=== PATIENT | female | born 1995 | race Caucasian/White ===

== ENCOUNTER 2021-01-11 | Emergency (ER) | payer MEDICAID, OTHER ==
--- NOTE | 2021-01-11 13:36 | ED ---
General Adult HPI - General Chief complaint: Recheck/Abnormal Lab/Rx Stated complaint: [facility]- needle stick Time Seen by Provider: 01/11/21 13:20 Source: patient, RN notes reviewed Mode of arrival: ambulatory Limitations: no limitations - History of Present Illness Initial comments: 25-year-old female presents emergency Department with chief complaint of needing redraw for needlestick. She hadn't used sick injury that happened in [place] 6 weeks ago today. Patient states that she has had no symptoms she never tested positive she was just advised that she needed her redraw. - Related Data Allergies Allergy/AdvReac Type Severity Reaction Status Date / Time No Known Allergies Allergy Verified 01/11/21 13:19 Review of Systems ROS Statement: Those systems with pertinent positive or pertinent negative responses have been documented in the HPI. ROS Other: All systems not noted in ROS Statement are negative. Past Medical History Past Medical History: No Reported History History of Any Multi-Drug Resistant Organisms: None Reported Past Surgical History: Orthopedic Surgery Past Psychological History: No Psychological Hx Reported Smoking Status: Never smoker Past Alcohol Use History: Occasional Past Drug Use History: None Reported General Exam Limitations: no limitations General appearance: alert, in no apparent distress Head exam: Present: atraumatic, normocephalic, normal inspection Eye exam: Present: normal appearance, PERRL, EOMI. Absent: scleral icterus, conjunctival injection, periorbital swelling ENT exam: Present: normal exam, normal oropharynx, mucous membranes moist Neck exam: Present: normal inspection, full ROM. Absent: tenderness, meningismus, lymphadenopathy Respiratory exam: Present: normal lung sounds bilaterally. Absent: respiratory distress, wheezes, rales, rhonchi, stridor Cardiovascular Exam: Present: regular rate, normal rhythm, normal heart sounds. Absent: systolic murmur, diastolic murmur, rubs, gallop, clicks Course Vital Signs 01/11/21 13:13 Temperature 97.9 F Pulse Rate 66 Respiratory 18 Rate Blood Pressure 114/74 O2 Sat by Pulse 98 Oximetry Medical Decision Making - Medical Decision Making HIV and hepatitis redraw was done in emergency department patient was discharged in stable condition. Disposition Clinical Impression: Needle stick injury Disposition: HOME SELF-CARE Condition: Stable Instructions (If sedation given, give patient instructions): Needle Stick Injuries (ED) Additional Instructions: Please return to the Emergency Department if symptoms worsen or any other concerns. Is patient prescribed a controlled substance at d/c from ED?: No Referrals: None,Stated [Primary Care Provider] - 1-2 days Time of Disposition: 13:36
== END 2021-01-11 14:04 | disposition home or self-care (01) ==
CPT/HCPCS: 99282

== ENCOUNTER → 2021-03-02 | Outpatient (CLI) | payer OTHER ==
[2021-03-02 21:50] LABS: HIV 2 AB Non-Reactive (Non-Reactive); HIV AB P24 Non-Reactive (Non-Reactive); HIV P24 AG Non-Reactive (Non-Reactive)
== END | disposition home or self-care (01) ==
LOC: LABWHC1 12:46
PROVIDERS: ATTEND Emergency Medicine
DX: Z77.21 Contact with and (suspected) exposure to potentially hazardous body fluids (principal)
CPT/HCPCS: 36415; 87390

== ENCOUNTER → 2021-06-04 | Outpatient (CLI) | payer OTHER | END | disposition home or self-care (01) | LOC: LABWHC1 12:37 | PROVIDERS: ATTEND Emergency Medicine | DX: T14.8XXA Other injury of unspecified body region, initial encounter (principal); W46.1XXA Contact with contaminated hypodermic needle, initial encounter | CPT/HCPCS: 36415; 87522 ==

== ENCOUNTER → 2021-08-08 | Outpatient (CLI) | payer MEDICAID, OTHER | END | disposition home or self-care (01) | LOC: LABWHC1 08:44 | PROVIDERS: ATTEND Emergency Medicine | DX: Z20.822 Contact with and (suspected) exposure to COVID-19 (principal) | CPT/HCPCS: 87635 ==

== ENCOUNTER → 2022-08-13 | Outpatient (CLI) | payer MEDICAID ==
--- NOTE | 2022-08-13 14:07 | US ---
EXAMINATION TYPE: US pelvis complete transvag DATE OF EXAM: 08/13/2022 COMPARISON: NONE CLINICAL HISTORY: R19.04 LLQ SOFT TISSUE MASS. TECHNIQUE: . Transabdominal sonographic images of the pelvis were acquired. Transvaginal sonographi c images were medically necessary to better assess the following anatomy: Date of LMP: 08/08/2022 EXAM MEASUREMENTS: Uterus: 6.8 x 3.4 x 3.9 cm Endometrial Stripe: 0.35 cm Right Ovary: 3.6 x 1.7 x 1.7 cm Left Ovary: 3.6 x 1.2 x 2.0 cm 1. Uterus: Anteverted wnl 2. Endometrium: wnl 3. Right Ovary: wnl 4. Left Ovary: wnl 5. Bilateral Adnexa: wnl 6. Posterior cul-de-sac: wnl 7. In area of palpable abnormality, left lower quadrant, no abnormalities visualized. IMPRESSION: Unremarkable pelvic ultrasound. No solid or cystic mass identified within the left lower quadrant in the patient's region of palpable abnormality.
== END | disposition home or self-care (01) ==
LOC: RADUSWWP 12:39
PROVIDERS: ATTEND Family Medicine
DX: R19.04 Left lower quadrant abdominal swelling, mass and lump (principal)
CPT/HCPCS: 76830; 76856

== ENCOUNTER → 2022-10-26 | Outpatient (CLI) | payer MEDICAID ==
[2022-10-26 22:32] LABS: Basophils # (A) 0.04 X 10*3/uL (0.00-0.10); Basophils % (A) 0.4 %; Eosinophils # (A) 0.07 X 10*3/uL (0.04-0.35); Eosinophils % (A) 0.6 %; HCT 40.3 % (37.2-46.3); HGB 13.4 g/dL (12.0-15.0); Immature Grans, Automated 0.3 %; Lymphocytes # (A) 1.84 X 10*3/uL (0.90-5.00); MCH 30.2 pg (27.0-32.0); MCHC 33.3 g/dL (32.0-37.0); Mean Platelet Volume 9.8 fL (9.5-12.2); Monocytes # (A) 0.55 X 10*3/uL (0.20-1.00); Monocytes % (A) 5.1 %; NRBC Per 100 WBC 0 /100 WBCS (0.0-0.0); Neutrophils # (A) 8.31 X 10*3/uL (1.80-7.70); Neutrophils % (A) 76.6 %; Platelet Count 350 X 10*3/uL (140-440); RBC 4.43 X 10*6/uL (4.10-5.20); RDW 12.7 % (11.5-14.5); WBC 10.84 X 10*3/uL (4.50-10.00)
== END | disposition home or self-care (01) ==
LOC: LABPAT 14:35
PROVIDERS: ATTEND Obstetrics & Gynecology
DX: Z01.812 Encounter for preprocedural laboratory examination (principal); O02.1 Missed abortion; Z3A.00 Weeks of gestation of pregnancy not specified
CPT/HCPCS: 36415; 85025

== ENCOUNTER 2022-10-27 06:23 | Day surgery (SDC) | payer MEDICAID ==
[~2022-10-27 06:23] MED LIST: Pre Op ABX Message 1 EACH MISC MISCELLANE ONE
[2022-10-27] MEDS ORDERED: ONDANSETRON 4 MG/2 ML VIAL IVP ONE (06:42)
[2022-10-27] MEDS ORDERED: LACTATED RINGERS 1,000 ML IV SCH (06:42)
[2022-10-27] MEDS ORDERED: MIDAZOLAM 2 MG/2 ML VIAL IV PRN (06:42)
[2022-10-27] MEDS ORDERED: DEXAMETHASONE SOD PHOSPHATE 4 MG/ML 1 ML VIAL IV ONE (06:42)
[2022-10-27] MEDS ORDERED: SCOPOLAMINE 1 MG/72 HR PATCH TRANSDERM ONE (06:42)
[2022-10-27] MEDS ORDERED: HYDROmorphone 0.5 MG/0.5 ML SYRINGE IVP PRN (07:00)
[2022-10-27] MEDS ORDERED: fentaNYL (PF) 50 MCG/ML 2 ML AMP ONE (07:27)
[2022-10-27] MEDS ORDERED: LIDOCAINE 2% INJ 20 MG/ML (2 ML VIAL) ONE (07:27)
[2022-10-27] MEDS ORDERED: ePHEDrine 50 MG/ML 1 ML VIAL ONE (07:27)
[2022-10-27] MEDS ORDERED: PROPOFOL 10 MG/ML 20 ML VIAL IV ONE (07:27)
[2022-10-27] MEDS ORDERED: KETOROLAC 15 MG/ML 1 ML VIAL ONE (07:27)
--- NOTE | 2022-10-27 08:06 | P.PCN ---
Date of Procedure: 10/27/22 Preoperative Diagnosis: Missed 8 weeks Postoperative Diagnosis: same Anesthesia: GETA Surgeon: Cristina Foley Estimated Blood Loss (ml): 200 IV fluids (ml): 400 Urine output (ml): 300 Pathology: other (Intrauterine uterine contents, products of conception) Condition: stable Disposition: PACU Description of Procedure: Patient is brought to the operating suite where a general anesthetic is administered without difficulty. She's placed in the dorsal lithotomy position. The appropriate timeout is performed to assure proper patient and procedural identification. Blood type is A-. Examination under anesthesia reveals a retroverted uterus of approximately 8-10 weeks size, negative adnexa bilaterally. Bladder is drained for approximately 300 mL of clear yellow urine. Weighted speculum was placed into the vagina. Anterior lip of the cervix is grasped with a double-tooth tenaculum. Uterus sounds to a depth of 9 cm in the retroverted position. Cervix is gently and systematically dilated using Hanks dilators with little resistance. A #8 curved curet is placed to the dome of the fundus and under appropriate suction pressures the uterus is evacuated for a large amount of tissue. A medium sharp curette is used in all 4 quadrants to assure that the cavity is emptied thoroughly. Suction curette once again placed and no additional tissue is procured. Instrumentation is removed. Cervix is clean and dry. All sponge needle and instrument counts are correct patient is brought back to the recovery room in very good condition with stable vital signs including blood pressure 100/52, pulse 60, 100% O2 saturation. RhoGAM is given in the recovery room for Rh- status. Toradol is given as well. Written instructions are provided. Patient will follow-up with me in the office in 2 weeks.
[2022-10-27] MEDS ORDERED: Rhogam IMMUNE GLOBULIN 1,500 UNIT/1 ML IM ONE (08:23)
[2022-10-27 08:34] VITALS: TEMP 97.8
[2022-10-27 09:47] VITALS: BP 113/74; PULSE 74; RESP 18
== END 2022-10-27 10:40 ==
LOC: OR 06:23
PROVIDERS: ATTEND Obstetrics & Gynecology
DX: O02.1 Missed abortion (principal); Z98.890 Other specified postprocedural states; Z79.899 Other long term (current) drug therapy
CPT/HCPCS: 86900; 86901; 88305; 86850; 59820; J2790; J1100; J2405; J3010; J1885; J2704; J2001

== ENCOUNTER → 2023-01-21 | Outpatient (CLI) | payer MEDICAID ==
[2023-01-21 15:49] LABS: HGB 13.8 d/dL (12.0-15.0); MCH 29.9 pg (27.0-32.0); MCHC 32.9 d/dL (32.0-37.0); MCV 91.1 FL (80.0-97.0); Mean Platelet Volume 9.9 FL (9.5-12.2); NRBC Per 100 WBC 0 X 10*3/uL (0.00-0.01); Platelet Count 310 X 10*3/uL (140-440); RBC 4.61 X 10*6/uL (4.10-5.20); RDW 12.1 % (11.5-14.5); WBC 5.34 X 10*3/uL (4.50-10.00)
[2023-01-21 21:30] LABS: T4, Free (Free Thyroxine) 1.22 ng/dL (0.80-1.80)
[2023-01-21 23:17] LABS: Prolactin 19.9 ng/mL (2.800-29.200)
== END | disposition home or self-care (01) ==
LOC: LABWHC1 10:42
PROVIDERS: ATTEND Obstetrics & Gynecology Obstetrics
DX: N96 Recurrent pregnancy loss (principal)
CPT/HCPCS: 36415; 83036; 84146; 84439; 84443; 84481; 85027

== ENCOUNTER → 2023-03-17 | Outpatient (CLI) | payer MEDICAID ==
[2023-03-18 09:27] LABS: Prothrombin 20210A Mutation Negative
== END | disposition home or self-care (01) ==
LOC: LABWHC1 14:54
PROVIDERS: ATTEND Obstetrics & Gynecology Obstetrics
DX: N96 Recurrent pregnancy loss (principal)
CPT/HCPCS: 36415; 81240; 81291

== ENCOUNTER → 2023-03-28 | Outpatient (CLI) | payer MEDICAID | END | disposition home or self-care (01) | LOC: LABWHC1 14:32 | PROVIDERS: ATTEND Obstetrics & Gynecology Obstetrics | DX: N96 Recurrent pregnancy loss (principal) | CPT/HCPCS: 36415; 81241 ==

== ENCOUNTER 2023-09-23 09:15 | Emergency (ER) | payer MEDICAID ==
[2023-09-23 09:55] LABS: Basophils % (A) 0 %; Eosinophils # (A) 0.1 k/uL (0-0.7); Eosinophils % (A) 1 %; HCT 40.5 % (34.0-46.0); HGB 13.6 gm/dL (11.4-16.0); Lymphocytes # (A) 1.5 k/uL (1.0-4.8); Lymphocytes % (A) 14 %; MCH 30.5 pg (25.0-35.0); MCHC 33.7 g/dL (31.0-37.0); MCV 90.6 fL (80.0-100.0); Mean Platelet Volume 7.5; Monocytes # (A) 0.4 k/uL (0-1.0); Monocytes % (A) 4 %; Neutrophils # (A) 8.2 k/uL (1.3-7.7); Neutrophils % (A) 80 %; Platelet Count 297 k/uL (150-450); RBC 4.47 m/uL (3.80-5.40); RDW 12.2 % (11.5-15.5); WBC 10.3 k/uL (3.8-10.6)
[2023-09-23 09:56] VITALS: RESP 18
[2023-09-23 10:04] LABS: ALT 19 U/L (4-34); AST 26 U/L (14-36); African American GFR (CKD) >90 (>60 ml/min/1.73 sqM); Albumin 4.7 g/dL (3.5-5.0); Alkaline Phosphatase 37 U/L (38-126); Anion Gap 10 mmol/L; Blood Urea Nitrogen 14 mg/dL (7-17); Calcium 9.8 mg/dL (8.4-10.2); Carbon Dioxide 20 mmol/L (22-30); Chloride 105 mmol/L (98-107); Glucose 95 mg/dL (74-99); Non-African American GFR(CKD) >90 (>60 ml/min/1.73 sqM); Potassium 4.2 mmol/L (3.5-5.1); Sodium 135 mmol/L (137-145); Total Bilirubin 0.8 mg/dL (0.2-1.3); Total Protein 7.5 g/dL (6.3-8.2)
--- NOTE | 2023-09-23 10:06 | ED ---
Female Urogenital HPI - General Chief complaint: Vaginal Bleeding Stated complaint: Bleeding,Cramping -7wks Time Seen by Provider: 09/23/23 09:29 Source: patient, RN notes reviewed Mode of arrival: ambulatory Limitations: no limitations - History of Present Illness Initial comments: This is a 27 year old female who presents to the emergency department for vaginal bleeding in . Patient is 7-8 weeks and . States that the bleeding started this morning. She has very minor abdominal cramping. Currently follows with Dr. Berrios, BIRD TENDER, however she has not yet seen her in this . She has an appointment coming up in 4 days with an ultrasound scheduled then as well. She is a negative blood type and has received RhoGAM with each . MD Complaint: vaginal bleeding - Related Data Home Medications Medication Instructions Recorded Confirmed Vit No.179/Iron/Folic 1 each PO DAILY 10/26/22 10/26/22 [ Tablet] Allergies Allergy/AdvReac Type Severity Reaction Status Date / Time No Known Allergies Allergy Verified 09/23/23 09:28 Review of Systems ROS Statement: Those systems with pertinent positive or pertinent negative responses have been documented in the HPI. ROS Other: All systems not noted in ROS Statement are negative. Past Medical History Past Medical History: No Reported History Additional Past Medical History / Comment(s): miscarriage History of Any Multi-Drug Resistant Organisms: None Reported Past Surgical History: Orthopedic Surgery Additional Past Surgical History / Comment(s): left hip labrum repair Past Anesthesia/Blood Transfusion Reactions: No Reported Reaction Past Psychological History: No Psychological Hx Reported Smoking Status: Never smoker Past Alcohol Use History: None Reported Past Drug Use History: None Reported General Exam Limitations: no limitations General appearance: alert, in no apparent distress Head exam: Present: atraumatic, normocephalic, normal inspection Respiratory exam: Present: normal lung sounds bilaterally. Absent: respiratory distress, wheezes, rales, rhonchi, stridor Cardiovascular Exam: Present: regular rate, normal rhythm, normal heart sounds. Absent: systolic murmur, diastolic murmur, rubs, gallop, clicks Neurological exam: Present: alert, oriented X3, CN II-XII intact Psychiatric exam: Present: normal affect, normal mood Skin exam: Present: warm, dry, intact, normal color. Absent: rash Course Vital Signs 09/23/23 09/23/23 09:25 12:00 Temperature 98.7 F 98.1 F Pulse Rate 106 H 88 Respiratory 18 18 Rate Blood Pressure 133/88 122/68 O2 Sat by Pulse 98 99 Oximetry Medical Decision Making - Medical Decision Making This is a 27 year old female who presents to the emergency department for vaginal bleeding in . Was pt. sent in by a medical professional or institution? @ -No Did you speak to anyone other than the patient for history? @ -No Did you review nursing and triage notes? @ -Yes, and I agree, it is accurate with regards to the patient's symptoms. Were old charts reviewed? @ -No Differential Diagnosis? @ -Differential Vaginal Bleeding: Spontaneous , threatened , molar , ectopic , incompetent cervix, placenta previa, uterine rupture, dysfunctional uterine bleeding, hemorrhage, uterine fibroids, malignancy, coagulopathy, PID, cervicitis, adenomyosis, vaginal trauma, this is not meant to be an all- inclusive list. EKG interpreted by me (3pts min.)? @ -Not obtained X-rays interpreted by me (1pt min.)? @ -Not obtained CT interpreted by me (1pt min.)? @ -Not obtained U/S interpreted by me (1pt. min.)? @ -OB US obtained. My interpretation identifies a single live IUP. What testing was considered but not performed? (CT, X-rays, U/S, labs)? Why? @ -None What meds were considered but not given? Why? @ -None Did you discuss the management of the patient with other professionals? @ -No Did you reconcile home meds? @ -No Was smoking cessation discussed for >3mins.? @ -No Was critical care preformed (if so, how long)? @ -No Were there social determinants of health that impacted care today? How? (Homelessness, low income, unemployed, alcoholism, drug addiction, transportation, low edu. Level, literacy, decrease access to med. care, halfway, rehab)? @ -No Was there de-escalation of care discussed even if they declined? (Discuss DNR or withdrawal of care, Hospice)? @ -No What co-morbidities impacted this encounter? (DM, HTN, Smoking, COPD, CAD, Cancer, CVA, Hep., AIDS, mental health diagnosis, sleep apnea, morbid obesity)? @ -, Factor V Was patient admitted / discharged? @ -Discharged. Lab work obtained and found to be unremarkable. Urinalysis negative for signs of infection. OB Ultrasound obtained and identified a single live intrauterine with a heart rate of 123 beats per minute. A small subchorionic hemorrhage was identified. Findings reviewed with the patient. She is A- and RhoGAM was administered. She called Dr. Berrios's office and has an appointment scheduled in 4 days for follow up with a repeat US. Patient otherwise discharged home in stable condition. Undiagnosed new problem with uncertain prognosis? @ -None Drug Therapy requiring intensive monitoring for toxicity (Heparin, Nitro, Insulin, Cardizem)? @ -None Were any procedures done? @ -None Diagnosis/symptom? @ -Threatened miscarriage Acute, or Chronic, or Acute on Chronic? @ -Acute Uncomplicated (without systemic symptoms) or Complicated (systemic symptoms)? @ -Uncomplicated Side effects of treatment? @ -None Exacerbation, Progression, or Severe Exacerbation] @ -Not applicable Poses a threat to life or bodily function? @ -No Return precautions reviewed in depth, the patient is instructed to return to the emergency department with any new, worsening, or concerning symptoms. Patient verbalized understanding. This case was discussed in detail with the attending ED physician, Dr. Jerry. Presentation, findings, and treatment plan discussed in detail as well. - Lab Data Result diagrams: 09/23/23 09:44 09/23/23 09:44 Lab Results 09/23/23 09/23/23 09/23/23 Range/Units 09:44 09:44 09:44 WBC 10.3 (3.8-10.6) k/uL RBC 4.47 (3.80-5.40) m/uL Hgb 13.6 (11.4-16.0) gm/dL Hct 40.5 (34.0-46.0) % MCV 90.6 (80.0-100.0) fL MCH 30.5 (25.0-35.0) pg MCHC 33.7 (31.0-37.0) g/dL RDW 12.2 (11.5-15.5) % Plt Count 297 (150-450) k/uL MPV 7.5 Neutrophils % 80 % Lymphocytes % 14 % Monocytes % 4 % Eosinophils % 1 % Basophils % 0 % Neutrophils # 8.2 H (1.3-7.7) k/uL Lymphocytes # 1.5 (1.0-4.8) k/uL Monocytes # 0.4 (0-1.0) k/uL Eosinophils # 0.1 (0-0.7) k/uL Basophils # 0.0 (0-0.2) k/uL Sodium 135 L (137-145) mmol/L Potassium 4.2 (3.5-5.1) mmol/L Chloride 105 (98-107) mmol/L Carbon Dioxide 20 L (22-30) mmol/L Anion Gap 10 mmol/L BUN 14 (7-17) mg/dL Creatinine 0.64 (0.52-1.04) mg/dL Est GFR (CKD-EPI)AfAm >90 (>60 ml/min/1.73 sqM) Est GFR (CKD-EPI)NonAf >90 (>60 ml/min/1.73 sqM) Glucose 95 (74-99) mg/dL Calcium 9.8 (8.4-10.2) mg/dL Total Bilirubin 0.8 (0.2-1.3) mg/dL AST 26 (14-36) U/L ALT 19 (4-34) U/L Alkaline Phosphatase 37 L (38-126) U/L Total Protein 7.5 (6.3-8.2) g/dL Albumin 4.7 (3.5-5.0) g/dL HCG, Quant 59413.7 mIU/mL Urine Color Colorless Urine Appearance Clear (Clear) Urine pH 5.0 (5.0-8.0) Ur Specific [place] 1.003 (1.001-1.035) Urine Protein Negative (Negative) Urine Glucose (UA) Negative (Negative) Urine Ketones Negative (Negative) Urine Blood Trace H (Negative) Urine Nitrite Negative (Negative) Urine Bilirubin Negative (Negative) Urine Urobilinogen <2.0 (<2.0) mg/dL Ur Leukocyte Esterase Negative (Negative) Urine RBC <1 (0-5) /hpf Urine WBC 1 (0-5) /hpf Ur Squamous Epith Cells 2 (0-4) /hpf Blood Type Blood Type Recheck Bld Type Recheck Status Antibody Screen 09/23/23 Range/Units 09:44 WBC (3.8-10.6) k/uL RBC (3.80-5.40) m/uL Hgb (11.4-16.0) gm/dL Hct (34.0-46.0) % MCV (80.0-100.0) fL MCH (25.0-35.0) pg MCHC (31.0-37.0) g/dL RDW (11.5-15.5) % Plt Count (150-450) k/uL MPV Neutrophils % % Lymphocytes % % Monocytes % % Eosinophils % % Basophils % % Neutrophils # (1.3-7.7) k/uL Lymphocytes # (1.0-4.8) k/uL Monocytes # (0-1.0) k/uL Eosinophils # (0-0.7) k/uL Basophils # (0-0.2) k/uL Sodium (137-145) mmol/L Potassium (3.5-5.1) mmol/L Chloride (98-107) mmol/L Carbon Dioxide (22-30) mmol/L Anion Gap mmol/L BUN (7-17) mg/dL Creatinine (0.52-1.04) mg/dL Est GFR (CKD-EPI)AfAm (>60 ml/min/1.73 sqM) Est GFR (CKD-EPI)NonAf (>60 ml/min/1.73 sqM) Glucose (74-99) mg/dL Calcium (8.4-10.2) mg/dL Total Bilirubin (0.2-1.3) mg/dL AST (14-36) U/L ALT (4-34) U/L Alkaline Phosphatase (38-126) U/L Total Protein (6.3-8.2) g/dL Albumin (3.5-5.0) g/dL HCG, Quant mIU/mL Urine Color Urine Appearance (Clear) Urine pH (5.0-8.0) Ur Specific [place] (1.001-1.035) Urine Protein (Negative) Urine Glucose (UA) (Negative) Urine Ketones (Negative) Urine Blood (Negative) Urine Nitrite (Negative) Urine Bilirubin (Negative) Urine Urobilinogen (<2.0) mg/dL Ur Leukocyte Esterase (Negative) Urine RBC (0-5) /hpf Urine WBC (0-5) /hpf Ur Squamous Epith Cells (0-4) /hpf Blood Type A Negative Blood Type Recheck A Neg Bld Type Recheck Status No Antibody Screen NEGATIVE - Radiology Data Radiology results: report reviewed, image reviewed Disposition Clinical Impression: Threatened Disposition: HOME SELF-CARE Instructions (If sedation given, give patient instructions): Subchorionic Hemorrhage (ED) Additional Instructions: Return to the emergency department with any new, worsening, or concerning symptoms. Follow up with your BIRD TENDER as scheduled on Tuesday. Is patient prescribed a controlled substance at d/c from ED?: No Referrals: Albina Cole MD [Primary Care Provider] - 1-2 days Time of Disposition: 11:42
--- NOTE | 2023-09-23 11:00 | US ---
EXAMINATION TYPE: Ultrasound OB <= 14 week fetus DATE OF EXAM: 09/23/2023 10:16 AM COMPARISON: NONE CLINICAL INDICATION: Female, 27 years old with history of Vaginal bleeding in ; Bleeding luz marina t started today. EXAM PERFORMED: Transabdominal (TA) EXAM MEASUREMENTS: GESTATIONAL AGE / DATING Physician Established: Not yet established Dates by LMP: (6 weeks/6 days) EDC: 05/12/2024 Dates by First Scan: No previous this is first scan Dates by Current Scan for: ( 6 weeks/5 days) EDC: 05/13/2024 MATERNAL ANATOMY Uterus: 8.4 x 6.7 x 5.2 cm Right Ovary: 4.2 x 1.8 x 2.0 cm Left Ovary: 2.2 x 1.4 x 0.9 cm Post CDS / Adnexa: no free fluid Presence of free fluid: no Presence of corpus luteal cyst: right ovary complex lesion with peripheral vascularity = 2.0 x 1.8 x 2.0 cm Presence of subchorionic bleed: lower uterine segment= 1.4 x 1.3 x 0.4 cm GESTATION / SURVEY CRL: 0.8 cm (6 weeks/5 days) MSD: seen, not measured Yolk Sac (normal less than 6mm): 3.2 mm Heart Rate: 123 bpm Rhythm: Normal IUP: Viable IUP Date of LMP: 08/06/2023, [id number] Beta HcG (if available): Not available at this time IMPRESSION: 1. Single live intrauterine with estimated gestational age of 6 weeks 6 days by LMP. Curren t ultrasound biometry is concordant at 6 weeks 5 days. 2. Small inferior perigestational bleed measuring 1.4 cm. 3. A 2.0 cm corpus luteum of the right ovary. 4. Short interval follow-up as clinically indicated. Also, complete survey recommended at 18-20 weeks.
[2023-09-23 11:03] LABS: HCG,Quantitative Serum 56947.7 mIU/mL
[2023-09-23 11:18] LABS: Appearance,Urine Clear (Clear); Bilirubin,Urine Negative (Negative); Blood,Urine Trace (Negative); Color,Urine Colorless; Glucose,Urine (UA) Negative (Negative); Ketones,Urine Negative (Negative); Leukocyte Esterase,Urine Negative (Negative); Nitrite,Urine Negative (Negative); Protein,Urine Negative (Negative); RBC,Urine <1 /hpf (0-5); Specific Gravity,Urine 1.003 (1.001-1.035); Squamous Epithelial Cell,Urine 2 /hpf (0-4); Urobilinogen,Urine <2.0 mg/dL (<2.0); WBC,Urine 1 /hpf (0-5)
[2023-09-23] MEDS: Rhogam IMMUNE GLOBULIN 1,500 UNIT/1 ML IM ONE (11:46)
[2023-09-23 12:37] VITALS: BP 122/68; PULSE 88; TEMP 98.1
== END 2023-09-23 12:00 | disposition home or self-care (01) ==
LOC: EC 09:15
DX: O20.0 Threatened abortion (principal); Z3A.01 Less than 8 weeks gestation of pregnancy
CPT/HCPCS: 99284 ×2; 96372 ×2; 36415; 86900; 86901; 80053; 85025; 86850; 81001; 84702; 76801; J2790

== ENCOUNTER → 2023-10-20 | Outpatient (CLI) | payer MEDICAID ==
[2023-10-20 16:13] LABS: Hepatitis B Surface Antigen Nonreactive (Nonreactive); Hepatitis C IgG Antibody Nonreactive (Nonreactive)
[2023-10-20 16:30] LABS: HCT 39.8 % (37.2-46.3); HGB 13.2 g/dL (12.0-15.0); MCH 30.1 pg (27.0-32.0); MCHC 33.2 g/dL (32.0-37.0); MCV 90.9 FL (80.0-97.0); Mean Platelet Volume 10.3 FL (9.5-12.2); NRBC Per 100 WBC 0 X 10*3/uL (0.00-0.01); Platelet Count 317 X 10*3/uL (140-440); RBC 4.38 X 10*6/uL (4.10-5.20); RDW 12.7 % (11.5-14.5); WBC 8.77 X 10*3/uL (4.50-10.00)
[2023-10-21 14:43] LABS: HIV 2 AB Non-Reactive (Non-Reactive); HIV AB P24 Non-Reactive (Non-Reactive); HIV P24 AG Non-Reactive (Non-Reactive)
== END | disposition home or self-care (01) ==
LOC: LABWHC1 10:12
PROVIDERS: ATTEND Obstetrics & Gynecology Obstetrics
DX: Z34.81 Encounter for supervision of other normal pregnancy, first trimester (principal)
CPT/HCPCS: 36415; 85027; 86762; 86780; 86803; 86850; 86870; 86880; 86900; 86901; 87086; 87340; 87390

== ENCOUNTER → 2024-02-14 | Outpatient (CLI) | payer MEDICAID | END | disposition home or self-care (01) | LOC: LABWHC1 14:25 | PROVIDERS: ATTEND Obstetrics & Gynecology Obstetrics | DX: Z36.9 Encounter for antenatal screening, unspecified (principal) | CPT/HCPCS: 36415; 82950; 85027; 86850; 86900; 86901 ==

== ENCOUNTER 2024-05-05 06:00 | Inpatient (IN) | payer MEDICAID ==
[2024-05-05] MEDS ORDERED: TERBUTALINE 1 MG/ML VIAL SQ PRN (06:10)
[2024-05-05] MEDS ORDERED: METHYLERGONOVINE 0.2 MG/ML 1 ML AMP IM PRN (06:10)
[2024-05-05] MEDS ORDERED: miSOPROStoL 200 MCG TAB RECTAL PRN (06:10)
[2024-05-05] MEDS ORDERED: miSOPROStoL 200 MCG TAB PO PRN (06:10)
[2024-05-05] MEDS ORDERED: TRANEXAMIC 1,000 MG/100ML-NACL 1,000 MG in EMPTY BAG 1 BAG IV PRN (06:10)
[2024-05-05] MEDS ORDERED: LIDOCAINE 0.5% (PF) 5 MG/ML (50 ML SDV) SQ PRN (06:10)
[2024-05-05] MEDS ORDERED: OXYTOCIN 10 UNIT/ML 1 ML VIAL IM PRN (06:10)
[2024-05-05] MEDS ORDERED: CARBOPROST TROMETHAMINE 250 MCG/ML 1 ML AMP IM PRN (06:10)
[2024-05-05 06:13] LABS: Glucose,Whole Blood 100 mg/dL (70-110)
[2024-05-05 06:21] VITALS: RESP 16
[2024-05-05] MEDS: LACTATED RINGERS 1,000 ML IV SCH (06:23)
[2024-05-05] MEDS: OXYTOCIN 30 UNITS/500 ML NS 30 UNIT in SALINE 1 500ML.BAG IV SCH (06:24)
[2024-05-05 06:45] LABS: Basophils % (A) 0 %; Eosinophils # (A) 0.1 k/uL (0-0.7); Eosinophils % (A) 1 %; HCT 42.2 % (34.0-46.0); HGB 14.6 gm/dL (11.4-16.0); Lymphocytes # (A) 1.6 k/uL (1.0-4.8); Lymphocytes % (A) 20 %; MCH 31.5 pg (25.0-35.0); MCHC 34.6 g/dL (31.0-37.0); MCV 90.9 fL (80.0-100.0); Mean Platelet Volume 8.2; Monocytes # (A) 0.4 k/uL (0-1.0); Monocytes % (A) 5 %; Neutrophils # (A) 5.6 k/uL (1.3-7.7); Neutrophils % (A) 72 %; Platelet Count 290 k/uL (150-450); RBC 4.65 m/uL (3.80-5.40); RDW 12.8 % (11.5-15.5); WBC 7.8 k/uL (3.8-10.6)
--- NOTE | 2024-05-05 11:22 | P.HPOB ---
History of Present Illness H&P Date: 05/05/24 Chief Complaint: IUP at 39-0/7 weeks This is a 28-year-old 3 para 0-0-2-0 at 39-0/7 weeks that presents to labor and delivery for scheduled induction of labor. Patient has a history of MTHFR and factor V deficiency, she has been on Lovenox 40 mg daily throughout . Patient in addition was diagnosed with gestational diabetes as has been well-controlled with diet alone. Patient underwent testing which has been normal. Patient notes good movement denies vaginal bleeding contractions or loss of fluid. On blood work this patient is a blood type of A-, rubella status immune, hepatitis B surface engine negative, hepatitis C nonreactive, HIV negative, RPR is nonreactive, group beta strep cultures negative. Review of Systems Constitutional: Denies chills, Denies fatigue, Denies fever Ears, nose, mouth and throat: Denies headache Cardiovascular: Denies leg edema Respiratory: Denies dyspnea Gastrointestinal: Denies constipation, Denies diarrhea, Denies nausea, Denies vomiting Genitourinary: Reports Past Medical History Past Medical History: No Reported History Additional Past Medical History / Comment(s): miscarriage, factor five, MTHFR, GDM- diet control History of Any Multi-Drug Resistant Organisms: None Reported Past Surgical History: Orthopedic Surgery Additional Past Surgical History / Comment(s): left hip labrum repair Past Anesthesia/Blood Transfusion Reactions: No Reported Reaction Past Psychological History: No Psychological Hx Reported Smoking Status: Never smoker Past Alcohol Use History: None Reported Additional Past Alcohol Use History / Comment(s): none currently Past Drug Use History: None Reported Medications and Allergies Home Medications Medication Instructions Recorded Confirmed Type Vit No.179/Iron/Folic 1 each PO DAILY 10/26/22 05/05/24 History [ Tablet] Enoxaparin [Lovenox] 40 mg SQ DAILY 02/16/24 05/05/24 History Allergies Allergy/AdvReac Type Severity Reaction Status Date / Time No Known Allergies Allergy Verified 05/05/24 06:09 Exam Osteopathic Statement: *. No significant issues noted on an osteopathic structural exam other than those noted in the History and Physical/Consult. Vital Signs Temp Pulse Resp BP Pulse Ox 05/05/24 06:09 97.3 F L 94 16 115/82 99 Intake and Output 05/04/24 05/05/24 05/05/24 22:59 06:59 14:59 Other: Weight 62.142 kg Targeted physical exam is performed this date General Is a well-nourished well- developed female in no acute distress, breathing is nonlabored, abdomen is gravid and appropriate for gestational age, cervical exam she is 2/-1 station amniotomy is performed and clear fluid was obtained. heart tones are noted to be category 1 and she is andrew every 2 to 3 minutes Results Result Diagrams: 05/05/24 06:25 Assessment and Plan (1) Term Current Visit: Yes Status: Acute Code(s): Z34.90 - ENCNTR FOR SUPRVSN OF NORMAL , UNSP, UNSP TRIMESTER SNOMED Code(s): 46295162 (2) MTHFR mutation Current Visit: Yes Status: Acute Code(s): Z15.89 - GENETIC SUSCEPTIBILITY TO OTHER DISEASE SNOMED Code(s): 756339248 (3) Factor V deficiency Current Visit: Yes Status: Acute Code(s): D68.2 - HEREDITARY DEFICIENCY OF OTHER CLOTTING FACTORS SNOMED Code(s): 3625053 (4) Rh D negative blood type Narrative/Plan: 28-year-old -0-2-0 at 39-0/7 weeks that presents to labor and delivery for induction of labor. Patient is admitted to labor and delivery and Pitocin induction of labor has begun per hospital protocol. Options for analgesia are discussed. Patient's last dose of Lovenox was yesterday. Patient does desire epidural when appropriate. Continue current labor plan, anesthesia will be notified when she desires epidural. Current Visit: Yes Status: Acute Code(s): Z67.91 - UNSPECIFIED BLOOD TYPE, RH NEGATIVE SNOMED Code(s): 585640788
[2024-05-05] MEDS ORDERED: SODIUM CHLORIDE 0.9% 250 ML BAG ONE (13:08)
[2024-05-05] MEDS ORDERED: fentaNYL (PF) 50 MCG/ML 5 ML AMP ONE (13:08)
[2024-05-05] MEDS ORDERED: ROPIVACAINE 5 MG/ML 30 ML VIAL ONE (13:08)
[2024-05-05] MEDS ORDERED: SIMETHICONE 80 MG CHEWABLE PO PRN (16:32)
[2024-05-05] MEDS ORDERED: diphenhydrAMINE 50 MG/ML 1 ML VIAL IVP PRN ×2 (16:32)
[2024-05-05] MEDS ORDERED: LANOLIN CREAM 1 GM TUBE TOPICAL PRN (16:32)
[2024-05-05] MEDS ORDERED: diphenhydrAMINE 50 MG CAP PO PRN (16:32)
[2024-05-05] MEDS ORDERED: BENZOCAINE/MENTHOL SPRAY 1 GM/SPRAY AEROSOL TOPICAL PRN (16:32)
[2024-05-05] MEDS ORDERED: diphenhydrAMINE 25 MG CAP PO PRN (16:32)
[2024-05-05] MEDS ORDERED: HYDROCORTISONE 2.5% RECTAL CREAM 30 GM TUBE RECTAL PRN (16:32)
[2024-05-05] MEDS ORDERED: ZOLPIDEM 5 MG TAB PO PRN (16:32)
--- NOTE | 2024-05-05 16:32 | P.PROBDLV ---
Vaginal Delivery Note - . Vaginal Delivery Note: 28-year-old 3 para 0-0-2-0 that was admitted to labor and delivery this morning at 39-0/7 weeks for scheduled induction of labor. Patient has a history of MTHFR, factor V for which she has been on Lovenox 40 mg daily. Last dose yesterday. In addition patient was diagnosed with gestational diabetes and has been diet controlled. Patient was admitted to labor and delivery and Pitocin induction of labor was begun. Patient underwent amniotomy and clear fluid was obtained. Patient progressed in labor eventually becoming uncomfortable and requesting epidural. Epidural was placed without difficulty by the anesthesia department. Patient progressed to complete began pushing, heart tones were noted to be in the 60s and patient was counseled on vacuum-assisted vaginal delivery. Midline episiotomy was performed and vacuum was placed and with 1 pull with a contraction, she had a vacuum-assisted vaginal delivery of a viable female infant at 1608. (Placement of the cup was confirmed only 1 pull with contractions/maternal push)spontaneous cry was noted at . Umbilical cord was doubly clamped and cut, placenta was delivered spontaneously intact with a three-vessel cord being noted. Uterus was noted to be firm and below the umbilicus after delivery of the placenta. On inspection the patient's vaginal vault midline second-degree episiotomy was appreciated. This was injected with lidocaine and repaired in the usual fashion with 3-0 Rapide. After closure hemostasis was appreciated. Red rubber catheter was used to drain the bladder of 200 cc of clear yellow urine. Estimated blood loss 100 cc All counts were noted be correct x 2, patient and tolerated delivery well and are resting comfortably.
[2024-05-05] MEDS: IBUPROFEN 800 MG TAB PO SCH (16:55)
[2024-05-05] MEDS: SENNOSIDES-DOCUSATE SODIUM 1 EACH TAB PO SCH (16:55)
[2024-05-06] MEDS ORDERED: ACETAMINOPHEN TAB 500 MG TAB PO SCH
[2024-05-06 05:24] LABS: Basophils % (A) 0 %; Eosinophils # (A) 0.1 k/uL (0-0.7); Eosinophils % (A) 1 %; HCT 35.7 % (34.0-46.0); HGB 12.2 gm/dL (11.4-16.0); Lymphocytes # (A) 1.4 k/uL (1.0-4.8); Lymphocytes % (A) 12 %; MCH 31.6 pg (25.0-35.0); MCHC 34.2 g/dL (31.0-37.0); MCV 92.3 fL (80.0-100.0); Mean Platelet Volume 8.5; Monocytes # (A) 0.6 k/uL (0-1.0); Monocytes % (A) 5 %; Neutrophils # (A) 9.8 k/uL (1.3-7.7); Neutrophils % (A) 81 %; Platelet Count 260 k/uL (150-450); RBC 3.87 m/uL (3.80-5.40); WBC 12.1 k/uL (3.8-10.6)
[2024-05-06 06:25] VITALS: TEMP 98.7
--- NOTE | 2024-05-06 09:36 | P.DS ---
Providers Date of admission: 05/05/24 06:01 Expected date of discharge: 05/06/24 Attending physician: Tena Berrios Primary care physician: Stated None - Discharge Diagnosis(es) (1) Term Current Visit: Yes Status: Acute (2) MTHFR mutation Current Visit: Yes Status: Acute (3) Factor V deficiency Current Visit: Yes Status: Acute (4) Rh D negative blood type Current Visit: Yes Status: Acute (5) Vacuum-assisted vaginal delivery Current Visit: Yes Status: Acute (6) Obstetrical laceration, second degree Current Visit: Yes Status: Acute Hospital Course: This is a 28-year-old 3 para 0-0-2-0 at 39-0/7-week that presented to labor and delivery for induction of labor. Patient has been receiving routine care which is been complicated by diagnosis of gestational diabetes which has been well-controlled with diet alone. Patient in addition has a known history of MTHFR and factor V for which she has been on Lovenox 40 milligrams daily. For full details in this patient please see the dictated history and physical. Patient was admitted to labor and delivery and Pitocin induction of labor was begun per hospital protocol. Amniotomy is performed and clear fluid was obtained. Patient progressed through labor eventually becoming uncomfortable and requesting epidural. Anesthesia was notified and epidural was placed without difficulty. Patient made good progress toward complete dilation. Once completely dilated patient began pushing. Patient did undergo vacuum- assisted vaginal delivery after midline episiotomy was performed secondary to bradycardia and arrest of descent at +2 station. Vacuum was applied and with 1 pull with a contraction and maternal push she delivered a viable female at 1608, weight of 5 pounds 9.4 ounces. Episiotomy was repaired in the usual fashion with 3-0 Rapide. Patient's course has been uneventful. In this day #1 she is ambulating and voiding without difficulty. She is breast-feeding without difficulty. She is tolerating a regular diet without nausea or vomiting. She states her pain is well-controlled. She would like discharge home at 24 hours of possible. Patient Condition at Discharge: Good Plan - Discharge Summary New Discharge Prescriptions: No Action Vit No.179/Iron/Folic [ Tablet] 1 each PO DAILY Enoxaparin [Lovenox] 40 mg SQ DAILY Discharge Medication List Vit No.179/Iron/Folic [ Tablet] 1 each PO DAILY 10/26/22 [History] Enoxaparin [Lovenox] 40 mg SQ DAILY 02/16/24 [History] Follow up Appointment(s)/Referral(s): Tena Berrios DO [Doctor of Osteopathic Medicine] - 6 Weeks Patient Instructions/Handouts: Vaginal Delivery (GEN), Vaginal Delivery (DC) Activity/Diet/Wound Care/Special Instructions: No intercourse, tampons or tub baths. Call with any fever, shakes or chills, with any pain not alleviated by over the counter meds, or with any questions or concerns. Nlxi-ywo-esuiizr ibuprofen 600 mg or 3 tablets every 6 hours as needed for pain. Discharge Disposition: HOME SELF-CARE
[2024-05-06 16:47] VITALS: BP 102/65; PULSE 72
== END 2024-05-06 16:49 | disposition home or self-care (01) | DRG 806 ==
LOC: 4FBP 06:01
PROVIDERS: ADMIT Obstetrics & Gynecology Obstetrics; ATTEND Obstetrics & Gynecology Obstetrics
PROC: 10D07Z6 Extraction of Products of Conception, Vacuum, Via Natural or Artificial Opening (ICD-10-PCS; principal; 2024-05-05)
PROC: 0KQM0ZZ Repair Perineum Muscle, Open Approach (ICD-10-PCS; 2024-05-05)
PROC: 10907ZC Drainage of Amniotic Fluid, Therapeutic from Products of Conception, Via Natural or Artificial Opening (ICD-10-PCS; 2024-05-05)
DX: O99.12 Other diseases of the blood and blood-forming organs and certain disorders involving the immune mechanism complicating childbirth (principal); D68.2 Hereditary deficiency of other clotting factors; Z37.0 Single live birth; E72.12 Methylenetetrahydrofolate reductase deficiency; O24.420 Gestational diabetes mellitus in childbirth, diet controlled; O99.284 Endocrine, nutritional and metabolic diseases complicating childbirth; O70.1 Second degree perineal laceration during delivery; O62.1 Secondary uterine inertia; O76 Abnormality in fetal heart rate and rhythm complicating labor and delivery; Z3A.39 39 weeks gestation of pregnancy; Z87.59 Personal history of other complications of pregnancy, childbirth and the puerperium; Z79.899 Other long term (current) drug therapy
CPT/HCPCS: 85025; 86850; 86900; 86901

== ENCOUNTER → 2024-08-14 | Outpatient (CLI) | payer BC ==
[2024-08-14 11:27] LABS: HGB 14.3 g/dL (12.0-15.0); MCH 30.2 pg (27.0-32.0); MCHC 32.5 g/dL (32.0-37.0); MCV 92.8 FL (80.0-97.0); Mean Platelet Volume 10.5 FL (9.5-12.2); NRBC Per 100 WBC 0 X 10*3/uL (0.00-0.01); Platelet Count 332 X 10*3/uL (140-440); RBC 4.74 X 10*6/uL (4.10-5.20); RDW 12.7 % (11.5-14.5); WBC 4.95 X 10*3/uL (4.50-10.00)
[2024-08-14 11:28] LABS: Basophils # (A) 0.05 X 10*3/uL (0.00-0.10); Eosinophils # (A) 0.13 X 10*3/uL (0.04-0.35); Eosinophils % (A) 2.6 %; Immature Grans, Automated 0 %; Lymphocytes # (A) 1.81 X 10*3/uL (0.90-5.00); Lymphocytes % (A) 36.6 %; Monocytes # (A) 0.37 X 10*3/uL (0.20-1.00); Monocytes % (A) 7.5 %; Neutrophils # (A) 2.59 X 10*3/uL (1.80-7.70); Neutrophils % (A) 52.3 %
[2024-08-14 15:25] LABS: Blood Urea Nitrogen 23.8 mg/dL (9.0-27.0); Carbon Dioxide 25.4 mmol/L (21.6-31.8); Chloride 102 mmol/L (96-109); Glucose 88 mg/dL (70-110); LDL Cholesterol,Calculated 85.5 mg/dL (0.0-131.0); Potassium 4.6 mmol/L (3.5-5.5); Sodium 140 mmol/L (135-145); VLDL Calculation 7.22 mg/dL (5.00-40.00)
[2024-08-14 15:26] LABS: ALT 69 U/L (8-44); AST 30 U/L (13-35); Albumin 4.8 g/dL (3.8-4.9); Albumin/Globulin Ratio 2.09 Ratio (1.60-3.17); Alkaline Phosphatase 51 U/L (41-126); Globulin 2.3 g/dL (1.6-3.3); Total Bilirubin 0.6 mg/dL (0.3-1.2); Total Protein 7.1 g/dL (6.2-8.2)
== END | disposition home or self-care (01) ==
LOC: LABWHC1 07:16
PROVIDERS: ATTEND Internal Medicine
DX: Z00.00 Encounter for general adult medical examination without abnormal findings (principal); R73.9 Hyperglycemia, unspecified
CPT/HCPCS: 36415; 80053; 80061; 84443; 85025

== ENCOUNTER → 2024-08-29 | Outpatient (CLI) | payer SELFPAY ==
[2024-08-29 15:31] LABS: ALT 49 U/L (8-44); AST 27 U/L (13-35); Albumin 4.6 g/dL (3.8-4.9); Albumin/Globulin Ratio 1.92 Ratio (1.60-3.17); Alkaline Phosphatase 58 U/L (41-126); BUN/Creat Ratio 14.85 Ratio (12.00-20.00); Blood Urea Nitrogen 19.3 mg/dL (9.0-27.0); Calcium 9.8 mg/dL (8.7-10.3); Carbon Dioxide 28.7 mmol/L (21.6-31.8); Chloride 101 mmol/L (96-109); Globulin 2.4 g/dL (1.6-3.3); Glucose 95 mg/dL (70-110); Potassium 4.4 mmol/L (3.5-5.5); Sodium 140 mmol/L (135-145); Total Bilirubin 0.3 mg/dL (0.3-1.2)
== END | disposition home or self-care (01) ==
LOC: LABWHC1 11:36
PROVIDERS: ATTEND Internal Medicine
DX: R73.9 Hyperglycemia, unspecified (principal)
CPT/HCPCS: 36415; 80053; 83036

== ENCOUNTER → 2024-09-26 | Outpatient (CLI) | payer BC ==
--- NOTE | 2024-09-26 08:38 | MR ---
EXAMINATION TYPE: MR liver wo/w con DATE OF EXAM: 09/26/2024 7:07 AM COMPARISON: 09/05/2024 ultrasound CLINICAL INDICATION: Female, 28 years old with history of K76.9 LIVER DISEASE, UNSPECIFIED, Elevated Liver enzymes, abnormal US TECHNIQUE: Multiplanar multi-sequence imaging was performed without contrast. Post contrast imaging was performed. Post IV contrast subtraction images were also submitted for review. IV Contrast: 5 mL Gadobutrol FINDINGS: LOWER CHEST: No gross irregularity. ABDOMEN Liver: No evidence for hepatic steatosis or cirrhosis. Right hepatic lobe 14 mm lesion there is a single small nodule of enhancement within the center porti on of this on delayed imaging. This measures up to 6 mm enhancement. Left hepatic lobe 12 mm lesion this lesion demonstrates some peripheral enhancement which progresses on delayed imaging. Posterior right hepatic lobe nonenhancing high T2 signal cyst measuring 6 mm. Gallbladder and Bile ducts: No evidence for ductal dilation, or biliary stricture or evidence of chol edocholithiasis. The gallbladder is within normal limits. Pancreas: No ductal dilation. No evidence for solid mass. Spleen: Normal for size. Adrenal glands: Unremarkable. Kidneys: No evidence for obstructive uropathy. No suspicious renal masses. Stomach and Bowel: No evidence for bowel wall thickening or evidence for obstruction. Retroperitoneum/Peritoneum: No evidence of pneumoperitoneum or free fluid. Vasculature: No aortic aneurysm. Musculoskeletal: The osseous structures appear intact. Lymph Nodes: No gross evidence for lymphadenopathy. Abdominal wall: Unremarkable. IMPRESSION: 1. Right hepatic lobe lesion measuring 14 mm which has indeterminate enhancement characteristics. Le ft hepatic lobe lesion has enhancement characteristics of benign hemangioma. Given patient's age find ings likely represent atypical hemangioma versus adenoma. Consider follow-up in one year. 2. Simple appearing right hepatic lobe cyst. [facility], , 09/26/2024 8:35 AM
== END | disposition home or self-care (01) ==
LOC: RADMRIMAIN 05:59
PROVIDERS: ATTEND Internal Medicine
DX: K76.9 Liver disease, unspecified (principal)
CPT/HCPCS: 74183; A9585

== ENCOUNTER → 2025-01-21 | Outpatient (CLI) | payer BC ==
[2025-01-21 10:46] LABS: ALT 39 U/L (8-44); AST 23 U/L (13-35); Albumin 4.5 g/dL (3.8-4.9); Albumin/Globulin Ratio 1.88 Ratio (1.60-3.17); Alkaline Phosphatase 38 U/L (41-126); BUN/Creat Ratio 16.33 Ratio (12.00-20.00); Blood Urea Nitrogen 14.7 mg/dL (9.0-27.0); Calcium 9.3 mg/dL (8.7-10.3); Carbon Dioxide 23.3 mmol/L (21.6-31.8); Chloride 98 mmol/L (96-109); Ferritin 43.6 ng/mL (10.0-291.0); Globulin 2.4 g/dL (1.6-3.3); Glucose 85 mg/dL (70-110); Iron 40 UG/DL (50-170); Potassium 4.2 mmol/L (3.5-5.5); Sodium 133 mmol/L (135-145); Total Bilirubin 0.3 mg/dL (0.3-1.2); Total Iron Binding Capacity 258 UG/DL (228-460); Total Protein 6.9 g/dL (6.2-8.2)
[2025-01-21 11:18] LABS: Insulin Level 1.7 mIU/mL (3.0-25.0)
[2025-01-21 22:32] LABS: C-Peptide 1.09 ng/mL (0.81-3.85)
== END | disposition home or self-care (01) ==
LOC: LABWHC1 07:26
PROVIDERS: ATTEND Internal Medicine Endocrinology, Diabetes & Metabolism
DX: O24.415 Gestational diabetes mellitus in pregnancy, controlled by oral hypoglycemic drugs (principal); E88.819 Insulin resistance, unspecified; R79.89 Other specified abnormal findings of blood chemistry; Z3A.00 Weeks of gestation of pregnancy not specified
CPT/HCPCS: 36415; 80053; 82728; 83519; 83525; 83540; 83550; 84466; 84681